=== PATIENT | male | born 1955 | race Caucasian/White ===

== ENCOUNTER 2018-02-03 07:42 | Inpatient (IN) | payer BC ==
[2018-02-03] MEDS ORDERED: FAMOTIDINE 20 MG TAB PO ONE (07:49)
[2018-02-03] MEDS ORDERED: diphenhydrAMINE 25 MG CAP PO ONE ×2 (07:49→08:44)
[2018-02-03] MEDS ORDERED: NS 1,000 ML IV ONE (07:49)
[2018-02-03] MEDS ORDERED: ASPIRIN EC 325 MG TAB PO ONE ×2 (07:49→08:45)
[2018-02-03] MEDS ORDERED: DIAZEPAM 5 MG TAB PO ONE (07:49)
--- NOTE | 2018-02-03 08:16 | CPEKG ---
Heart Rate: 60 RR Interval: 1000 P-R Interval: 128 QRSD Interval: 98 QT Interval: 404 QTC Interval: 404 P Dillon: 64 QRS Dillon: 65 T Wave Dillon: 42 EKG Severity - NORMAL ECG - EKG Impression: SINUS RHYTHM EKG Impression: Agree with above Electronically Signed By: Papito Terrell 03-Feb-2018 10:45:02
[2018-02-03] MEDS ORDERED: FAMOTIDINE 20 MG TAB ONE (08:44)
[2018-02-03] MEDS ORDERED: DIAZEPAM 5 MG TAB ONE (08:45)
[2018-02-03 08:51] LABS: PLATELET COUNT 172 10^3/uL (150-400)
[2018-02-03 09:00] LABS: INR 1.01 (0.83-1.16); PROTIME(PATIENT) 13.5 SEC (12.0-15.0)
[2018-02-03] MEDS ORDERED: IOPAMIDOL (ISOVUE-370) 150 ML BTL IV ONE (09:04)
[2018-02-03] MEDS ORDERED: LIDOCAINE 1% 300 MG/30 ML SDV ONE (09:04)
[2018-02-03] MEDS ORDERED: fentaNYL 100 MCG/2 ML INJ ONE (09:04)
[2018-02-03] MEDS ORDERED: MIDAZOLAM 2 MG/2 ML VIAL ONE ×3 (09:04→10:33)
--- NOTE | 2018-02-03 09:09 | PDHPUP ---
History & Physical Update H&P update statement: This history and physical update is based on an assessment of the patient which was completed after admission or registration (within 24 hours), but prior to the surgery/procedure. H&P update: no change in patient's condition since H&P completed
--- NOTE | 2018-02-03 09:09 | PDPROPOC ---
Sedation Plan of Care Sedation Plan of Care: mental status noted ASA Classification: ASA 1 Planned drugs: fentanyl, midazolam Mallampati Score: Class 1 Mallampati Reference Image: Patient passed 3-3-2 rule?: Yes
[2018-02-03] MEDS ORDERED: PHENYLEPHRINE HCL 50 MG in NS 250 ML IV ONE (10:11)
[2018-02-03] MEDS ORDERED: SODIUM BICARBONATE 20 MEQ, LIDOCAINE 1% 10 ML in NORMOSOL-R 1,000 ML MISC ONE (10:11)
[2018-02-03] MEDS ORDERED: NOREPINEPHRINE BITARTRATE 16 MG in NS 250 ML IV ONE (10:11)
[2018-02-03] MEDS ORDERED: ceFAZolin 2 GM/SWFI 2 GM/20 ML SYR IVP ONE (10:11)
[2018-02-03] MEDS ORDERED: AMINOCAPROIC ACID 5 GM/20 ML VIAL IV ONE (10:11)
[2018-02-03] MEDS ORDERED: CITRATE DEXTROSE SOLN 500 ML BAG MISC ONE (10:11)
[2018-02-03] MEDS ORDERED: VERAPAMIL 5 MG, NITROGLYCERIN 2.5 MG, HEPARIN 500 UNIT, SODIUM BICARBONATE 0.2 MEQ in L... MISC ONE (10:11)
[2018-02-03] MEDS ORDERED: MUPIROCIN 2% 22 GM OINT NS ONE (10:11)
[2018-02-03] MEDS ORDERED: MANNITOL 25% 12.5 GM/50 ML VIAL IVP ONE (10:11)
[2018-02-03] MEDS ORDERED: INSULIN REGULAR HUMAN 100 UNIT in NS 100 ML IV ONE (10:11)
[2018-02-03] MEDS ORDERED: MILRINONE/DEXTROSE/100 ML BAG IV ONE (10:13)
[2018-02-03] MEDS ORDERED: NA BICARBONATE 50 MEQ/50 ML VIAL ONE ×2 (10:13→15:56)
[2018-02-03] MEDS ORDERED: CALCIUM CHLORIDE 1 GM/10 ML INJ ONE ×2 (10:13→10:15)
[2018-02-03] MEDS ORDERED: PROTAMINE SULFATE 50 MG/5 ML VIAL IVP ONE (10:13)
[2018-02-03] MEDS ORDERED: ceFAZolin 1 GM VIAL ONE (10:14)
[2018-02-03] MEDS ORDERED: HEPARIN 10,000 UNIT/10 ML MDV (1,000 UNIT/ML) ONE ×2 (10:14→10:15)
[2018-02-03] MEDS ORDERED: niCARdipine/NACL/200 ML BAG IV ONE (10:14)
[2018-02-03] MEDS ORDERED: DOPamine/DEXTROSE/250 ML BAG IV ONE (10:14)
[2018-02-03] MEDS ORDERED: AMIODARONE HCL 150 MG/3 ML VIAL ONE ×2 (10:14→10:16)
[2018-02-03] MEDS ORDERED: ADENOSINE 6 MG/2 ML VIAL ONE (10:14)
[2018-02-03] MEDS ORDERED: LIDOCAINE 2% 100 MG/5 ML SYR ONE (10:15)
[2018-02-03] MEDS ORDERED: ALBUMIN 5% 250 ML BOTTLE IV ONE ×2 (10:15→13:59)
[2018-02-03] MEDS ORDERED: MAGNESIUM SULFATE 1 GM/2 ML VIAL ONE (10:16)
[2018-02-03] MEDS ORDERED: methylPREDNISolone SOD SUCC 1 GM/8 ML VIAL ONE (10:16)
[2018-02-03] MEDS ORDERED: CITRATE DEXTROSE SOLN 500 ML BAG ONE (10:16)
[2018-02-03] MEDS ORDERED: VERAPAMIL 5 MG/2 ML VIAL ONE (10:30)
[2018-02-03] MEDS ORDERED: MINERAL OIL 10 ML VIAL ONE (10:30)
[2018-02-03] MEDS ORDERED: PAPAVERINE HCL 60 MG/2 ML SDV ONE (10:30)
[2018-02-03] MEDS ORDERED: PHENYLEPHRINE 10 MG/ML SDV ONE (10:32)
[2018-02-03] MEDS ORDERED: SUCCINYLCHOLINE CHLORIDE 200 MG/10 ML SYR IVP ONE (10:32)
[2018-02-03] MEDS ORDERED: ROCURONIUM 100 MG/10 ML VIAL ONE (10:32)
[2018-02-03] MEDS ORDERED: PROPOFOL 200 MG/20 ML VIAL ONE (10:33)
[2018-02-03] MEDS ORDERED: fentaNYL 250 MCG/5 ML INJ ONE ×2 (10:33)
[2018-02-03] MEDS ORDERED: LIDOCAINE 2% 5 ML SDV ONE (10:33)
--- NOTE | 2018-02-03 10:45 | CPIP ---
[f rep st] INVASIVE CARDIAC PROCEDURE DATE OF PROCEDURE: 02/03/2018 PROCEDURE PERFORMED: Cardiac catheterization. INDICATIONS: The patient has been having chest discomfort with minimal exertion. He has known coronary artery disease. His nuclear stress test was negative. He has known coronary artery disease with stenting of his right coronary artery in 2007. He is now brought to the laboratory inspector for class 2 to class 3 angina. FINDINGS: LEFT HEART CATHETERIZATION: Left ventricular end-diastolic pressure is 10 mmHg. There is no aortic stenosis. RIGHT CORONARY ARTERY: The right coronary artery has proximal to mid stent present with excellent flow through the stent. There is 0 in-stent restenosis. The patient has good distal flow and it is a dominant right coronary artery. Their is intimal mid rca disease LEFT MAIN CORONARY ARTERY: The catheter was engaged in the SAMOAN position into the left main coronary artery (that was after it was flushed in the aorta). The camera was brought to the 30 degree GUSTAFSON position and a small blush of dye was given to assess the left main coronary artery. It was obvious that there was severe disease involving the distal segment of the left main coronary artery. At that point, the catheter was removed into the abdominal aorta and we waited for interventional back up to be available for more pictures taken. We also contacted cardiac surgery. Dr. Shah came to the laboratory inspector, and at that point we reengaged the left main coronary artery and took a picture in the 30 degree GUSTAFSON projection, and saw severe obstruction in the distal left main coronary artery with good distal runoff. High grade obstruction present to ostial LAD/Diag /cx .One other picture was taken in the spider view showing disease involving the distal left main, proximal segment of the LAD, ramus and circumflex vessel. At that point, no further images were taken. Then, a pigtail was placed into the left ventricle. The patient is remaining on the table. At this point in time, the sheath is in, Cardiac Surgery has been called and asked for an urgent procedure. Blood has been sent for type and screen. The patient is getting an echocardiogram as this is being dictated and has good LV systolic function overall. No severe valvular disease seen on preliminary views of the echocardiogram. He is not having any angina. DISCUSSION: The patient is currently stable. I talked to Cardiac Surgery. They are taking him to the OR from the laboratory inspector, which I strongly recommend. I have discussed the surgery with the patient a significant length of time after anesthesia was given, and he is awake, alert and understanding, and he agrees with bypass surgery. We had talked about the need for bypass surgery in the clinic and he had agreed then, that if he needed it he wanted it done. I have also gone over the consent form with his for urgent bypass surgery, not because of spasm or complications of the procedure, but because of the findings of severe left main disease involving the proximal vessels that branch from the left main. She totally agrees and is supportive. Right now, the patient is stable. /[id number]/MODL MTDD
[2018-02-03] MEDS ORDERED: GLYCOPYRROLATE 0.2 MG/1 ML VIAL ONE ×2 (10:54)
[2018-02-03] MEDS ORDERED: LABETALOL HCL 5 MG/ML 20 ML MDV ONE (11:06)
[2018-02-03] MEDS ORDERED: NITROGLYCERIN 50 MG/10 ML SDV IV ONE (11:17)
--- NOTE | 2018-02-03 11:47 | PDANEPAE ---
ANE History of Present Illness cad needs cab ANE Past Medical History - Cardiovascular History Hx Chest Pain: Yes Hx Coronary Artery / Peripheral Vascular Disease: Yes Hx CHF / Valvular Disease: No - Pulmonary History Hx COPD: No Hx Asthma/Reactive Airway Disease: No Hx Recent Upper Respiratory Infection: No Hx Oxygen in Use at Home: No Hx Sleep Apnea: No - Endocrine History Hx Diabetes: No Hypothyroid: No Hyperthyroid: No - Renal History Hx Renal Disorders: No - Liver History Hx Hepatic Disorders: No ANE Review of Systems Review of Systems: ANE Patient History - Allergies Allergies/Adverse Reactions: No Known Allergies Allergy (Unverified 02/03/18 07:49) - Home Medications Home Medications: Aspirin EC [Aspirin EC 81 mg (*)] 81 mg PO DAILY 02/02/18 [Last Taken 02/02/18 22:00] Enalapril Maleate [Vasotec 2.5 MG (*)] 2.5 mg PO DAILY 02/02/18 [Last Taken 22:00] Metoprolol Tartrate [Lopressor 25 mg (*)] 25 mg PO BID 02/02/18 [Last Taken 06:30] Niacin ER [Niaspan 500 mg (*)] 500 mg PO DAILY 02/02/18 [Last Taken 02/02/18 22: 00] Simvastatin [Zocor] 20 mg PO DAILY 02/02/18 [Last Taken 02/02/18 22:00] - Anes Hx Anes Hx: no prior problems - Smoking Hx Smoking Status: Never smoked ANE Labs/Vital Signs - Labs Result Diagrams: 02/03/18 08:40 02/03/18 08:40 - Vital Signs Height: 188 cm Weight: 95.4 kg ANE Physical Exam - Airway Neck exam: FROM Mallampati Score: Class 2 Mouth exam: normal dental/mouth exam - Pulmonary Pulmonary: no respiratory distress - Cardiovascular Cardiovascular: regular rate and rhythym - ASA Status ASA Status: III, E ANE Anesthesia Plan Anesthesia Plan: general endotracheal anesthesia Lines/Monitors: arterial line, central line Urgent/Emergent Case: Silver masterson completed preop but documented later for safe timely pt care
--- NOTE | 2018-02-03 13:03 | ECHO ---
[email or web address] [place] [id number] Main: [phone] Fax: Transthoracic Echocardiogram Name: EVELYN COHEN MR#: [id number] Study Date: 02/03/2018 Study Time: 09:59 AM Date of : 1955 Age: 62 year(s) Height: ( ) Weight: ( ) BSA: Gender: Male Examination: Limited Echo Indication: Stat, Post cath Image Quality: Contrast: Requested by: Robert Lemos BP: / Heart Rate: Rhythm: Normal sinus rhythm Indication: Stat, Post cath Procedure Staff Online Services Manager: Lamin Clark RDCS Reading Physician: Robert Lemos MD Requesting Provider: Conclusions: There is normal LV function with a EF estimated at 60-65% There is trivial to mild MR. There is no evidence of Aortic Stenosis or Aortic Regurgitation. There is minimal TR with no evidence of pulmonary hypertension.. Measurements: Chambers Valvular Assessment AV/MV Valvular Assessment TV/PV Normal Normal Normal Name Value Range Name Value Range Name Value Range IVSd (2D): 0.9 cm (0.6 cm-1.1 AV Vmax: 1.14 m/s (1 m/s-1.7 cm) m/s) LVDd (2D): 3.0 cm (4.2 cm-5.9 AV maxP mmHg ( - ) cm) AV meanP mmHg ( - ) LVDs (2D): 2.2 cm (2.1 cm-4 MV meanP mmHg ( - ) cm) LVPWd (2D): 1.0 cm (0.6 cm-1 cm) LVEF (2D): 52 (>=54 %) Continued Measurements: Valvular Assessment AV/MV Name Value MV VTI: 18.50 cm Findings: Exam Comments: There is normal LV function with a EF estimated at 60-65% There is trivial to mild MR. There is no evidence of Aortic Stenosis or Aortic Regurgitation. There is minimal TR with no evidence of Patient: EVELYN COHEN Study Date: 02/03/2018 Page 1 of 2 09:59 AM pulmonary hypertension.. (No Signature Object) Patient: EVELYN COHEN Study Date: 02/03/2018 Page 2 of 2 09:59 AM [id number]
[2018-02-03] MEDS ORDERED: MAGNESIUM SULF 2 GM/WATER 50 ML BAG IV ONE (13:59)
[2018-02-03] MEDS ORDERED: DEXMEDETOMIDINE HCL 400 MCG in NS 100 ML IV ONE (14:00)
[2018-02-03] MEDS ORDERED: DEXMEDETOMIDINE IN 0.9 % NACL 100 ML IV ONE (14:00)
[2018-02-03] MEDS ORDERED: SUGAMMADEX SODIUM 200 MG/2 ML VIAL IVP ONE (14:03)
[2018-02-03] MEDS ORDERED: epHEDrine SULFATE 10 MG/ML SYR ONE (14:07)
[2018-02-03] MEDS ORDERED: BISACODYL 10 MG SUPP PR PRN (14:20)
[2018-02-03] MEDS ORDERED: POTASSIUM Cl (KCl) 50 ML IV PRN (14:20)
[2018-02-03] MEDS ORDERED: PANTOPRAZOLE SODIUM 40 MG VIAL IVP ONE (14:20)
[2018-02-03] MEDS ORDERED: ACETAMINOPHEN 650 MG SUPP PR PRN (14:20)
[2018-02-03] MEDS ORDERED: ALBUMIN 5% 250 ML IV PRN (14:20)
[2018-02-03] MEDS ORDERED: MAGNESIUM SULF 2 GM/WATER 50 ML IV ONE (14:20)
[2018-02-03] MEDS ORDERED: METOCLOPRAMIDE 10 MG/2 ML VIAL IVP PRN (14:20)
[2018-02-03] MEDS ORDERED: POLYETHYLENE GLYCOL 3350 17 GM PKT PO PRN (14:20)
[2018-02-03] MEDS ORDERED: MAGNESIUM HYDROXIDE 30 ML UDCUP PO PRN (14:20)
[2018-02-03] MEDS ORDERED: CEPACOL LOZENGE PO PRN (14:20)
[2018-02-03] MEDS ORDERED: LACTULOSE 20 GM/30 ML UDCUP PO PRN (14:20)
[2018-02-03] MEDS ORDERED: D50W 25 GM/50 ML SYR IVP PRN (14:20)
[2018-02-03] MEDS ORDERED: MEPERIDINE 25 MG/ML SYR IVP PRN (14:20)
[2018-02-03] MEDS ORDERED: ONDANSETRON DISINTEGRATING 4 MG TAB PO PRN (14:20)
[2018-02-03] MEDS ORDERED: SODIUM CL NASAL 45 ML BTL EACHNARE PRN (14:20)
[2018-02-03] MEDS ORDERED: NS 1,000 ML IV SCH (14:30)
[2018-02-03] MEDS ORDERED: INSULIN REGULAR HUMAN 100 UNIT in NS 100 ML IV SCH (14:30)
--- NOTE | 2018-02-03 14:42 | POSTANESTH ---
Post Anesthetic Evaluation Cardiovascular Status: Normal, Stable Respiratory Status: Normal, Stable Level of Consciousness/Mental Status: Can Participate in Eval Pain Control: Adequate, Prn Tx Ordered Nausea/Vomiting Control: Adequate, Prn Tx Ordered Complications Possibly Related to Anesthesia: None Noted
[2018-02-03] MEDS: fentaNYL 100 MCG/2 ML INJ IVP PRN ×3 (14:45→20:18)
--- NOTE | 2018-02-03 15:06 | GOP ---
[f rep st] OPERATIVE REPORT DATE OF OPERATION: SURGEON: Elie Donald DO HATCH SUPERVISOR: YANE Grimes ANESTHESIOLOGIST: Nicolas Quintero MD PREOPERATIVE DIAGNOSIS: Acute ischemic event with severe left main stenosis at catheterization. POSTOPERATIVE DIAGNOSIS: Acute ischemic event with severe left main stenosis at catheterization. PROCEDURE PERFORMED: 1. Emergent coronary artery bypass grafting x4 with left internal mammary artery to the left anterio r descending artery, right internal mammary artery to the ramus via the transverse sinus, saphenous v ein graft to the 1st obtuse marginal, saphenous vein graft to the posterior descending artery. 2. A 35 mm AtriClip to the left atrial appendage. 3. Endoscopic vein harvest, left leg, performed by Cyndi Strange PA-C. FINDINGS: Patient was noted to have chest pain on catheterization table with subtotal left main sten osis. Previous stenting of the right was patent with a proximal PDA lesion. LV function was well pr eserved on echo. DESCRIPTION OF PROCEDURE: He was brought emergently to the operating room, intubated. Monitoring li trent were placed. He was prepped and draped in sterile classical manner. Sternotomy was performed. Both mammaries were harvested. They were excellent vessels with good flow. He was heparinized, christine ulated. Bypass was begun. A cardioplegic arrest was obtained with antegrade cardioplegia, topical h ypothermia, and systemic cooling. Initially, the left atrial appendage was occluded with a 35 mm AtriClip. We then proceeded with navin ting a small lateral circumflex vessel, which measured 1.5 mm, but had excellent flow when completed. The proximal anastomosis was then completed with a cross-clamp on. We then grafted the ramus branc h, which was a 2.5 mm vessel with excellent quality, right internal mammary artery brought through a lateral pericardial incision via the transverse sinus and grafted end-to-side. It was tacked to the epicardium. Rewarming was begun while the proximal PDA, which was a 2.8 mm vessel with calcification in it, was grafted with a proximal anastomosis completed on the ascending aorta as well. We then gr afted the mammary to the LAD, which was a 2.4 mm vessel. The mammary was 2.4 mm. It was tacked to t he epicardium. Cross-clamp was removed with suction on the ascending aortic vent. Spontaneous cardiac activity was noted to resume. The patient was easily weaned from bypass. The heparin was reversed with protamine . The cannula was removed and oversewn. Two ventricular pacing wires, 2 pleural and 1 mediastinal d rains were placed. The thymic fat and pericardium were closed. Chest was closed in standard fashion . Patient was extubated in the operating room, returned to ICU in stable condition. /[id number]/MODL
--- NOTE | 2018-02-03 15:33 | CPEKG ---
Heart Rate: 69 RR Interval: 870 P-R Interval: 168 QRSD Interval: 94 QT Interval: 404 QTC Interval: 433 P Spring: 44 QRS Spring: 25 T Wave Spring: 63 EKG Severity - NORMAL ECG - EKG Impression: SINUS RHYTHM EKG Impression: EARLY TRANSITION EKG Impression: SLIGHT, DIFFUSE ST-T WAVE ABNORMALITIES -- NEW SINCE FEBRUARY 03, 2018, 8:14 Electronically Signed By: Papito Terrell 03-Feb-2018 20:22:33
--- NOTE | 2018-02-03 15:48 | PDMN ---
Medical Necessity Medical necessity: Patient meets inpatient criteria per PA and [facility] S-390 CABG ( acute ischemic event w/severe L main stenosis on cardiac cath, CABG x 4.)
[2018-02-03] MEDS ORDERED: NA BICARBONATE 50 MEQ/50 ML VIAL IV ONE (16:15)
[2018-02-03] MEDS: ceFAZolin 2 GM/SWFI 2 GM/20 ML SYR IVP SCH (21:46)
[2018-02-03] MEDS ORDERED: ceFAZolin 2 GM/DEXTROSE 100 ML IV SCH (22:00)
[2018-02-03] MEDS: MUPIROCIN 2% 22 GM OINT NS SCH (22:59)
[2018-02-04] MEDS: ONDANSETRON 4 MG/2 ML VIAL IVP PRN ×4 (00:52→20:10)
[2018-02-04] MEDS: fentaNYL 100 MCG/2 ML INJ IVP PRN (05:11)
[2018-02-04 05:56] LABS: PLATELET COUNT 121 10^3/uL (150-400)
[2018-02-04] MEDS: HEPARIN 5,000 UNIT/0.5 ML SYR SC SCH ×3 (06:16→21:41)
[2018-02-04] MEDS: ceFAZolin 2 GM/SWFI 2 GM/20 ML SYR IVP SCH ×3 (06:16→21:41)
[2018-02-04] MEDS: HYDROCODONE/APAP 5/325 TAB PO PRN ×2 (06:29→07:25)
--- NOTE | 2018-02-04 07:04 | SOAPPROG ---
SOAP Progress Note Assessment/Plan: Assessment: POD#1 Emergent CABG x 4 (WILFREDO-LAD, HOWARD-RI, SV-OM1, SV-PDA), EVH LLE , prophylactic AtriClip ligation SANDRA UA/progressive CAD with preserved systolic fx - Patent RCA stent, new PDA lesion and severe LM stenosis. Emergent CABG for threatening anatomy. No apparent complications. Extubated in the OR. Stable hemodynamics without vasoactive support or pacing. No sig volume overload. Secondary prevention with baby ASA, BB uptitrated as tolerated, and statin when eating well. Acute expected blood loss anemia - Stable. No transfusions required. VTE prophylaxis with SQ hep. Plan: Routine POD#1 orders re. wires, lines, drains, orals and mobility. Start metoprolol 12.5 mg BID with conservative hold parameters. Tx to PCU. 02/04/18 07:00 Subjective: Feels ok. Comfortable at rest. No dizziness or nausea. Objective: Vital Signs Temp Pulse Resp BP Pulse Ox 37.3 C 92 26 H 118/79 92 02/04/18 05:00 02/04/18 06:00 02/04/18 06:00 02/04/18 06:00 02/04/18 06:00 Laboratory Results 02/04/18 05:45 02/04/18 05:45 02/03/18 02/04/18 02/05/18 05:59 05:59 05:59 Intake Total 1245 Output Total 1819 Balance -574 PT 13.5 SEC (12.0-15.0) 02/03/18 08:40 INR 1.01 (0.83-1.16) 02/03/18 08:40 Stable HR, rhythm and BP. Min suppl O2. Adequate fluid balance. No sig CTOP. CXR -> No PTX, min pulm vasc congestion, LLL atelectasis, abundant bowel gas. Labs as expected. Physical Exam - Physical Exam General Appearance: alert, no apparent distress Respiratory: lungs clear (grossly), other (blakes x 3 y-d to pleurovac, thin serosang drainage, no air leak) Cardiac/Chest: regular rate, rhythm, other (Sternotomy and LLE venotomy CDI. Vwires intact.) Abdomen: normal bowel sounds, non-tender, soft Skin: warm/dry Extremities: swelling (trace) ICD10 Worksheet Patient Problems: Problems Problem Status Onset Acute blood loss anemia Acute CAD, multiple vessel Acute S/P CABG x 4 Acute ~02/03/18
[2018-02-04] MEDS ORDERED: traMADol 50 MG TAB PO PRN (08:05)
--- NOTE | 2018-02-04 09:41 | ASMTCASEMG ---
Living Arrangements What is your living Answers: With Spouse arrangement? Who do you live with? Type Of Residence What kind of residence do Answers: House you live in? Discharge Plan Comments Coordination Status Comments Notes: Patient is a 62 yo male who was admitted for a cardiac catheterization procedure. OT/PT/cardiac rehab have been ordered. Patient lives in [place]. D/C plan TBD. CM will follow. Date Signed: 02/04/2018 09:41 AM Electronically Signed By:Maryjane Rodriguez LCSW
[2018-02-04] MEDS: ATORVASTATIN CALCIUM 10 MG TAB PO SCH (09:57)
[2018-02-04] MEDS: METOPROLOL TARTRATE 25 MG TAB PO SCH ×2 (09:58→21:41)
[2018-02-04] MEDS: ASPIRIN EC 81 MG TAB PO SCH (09:59)
[2018-02-04] MEDS: PANTOPRAZOLE SODIUM 40 MG TAB PO SCH (09:59)
[2018-02-04] MEDS: MUPIROCIN 2% 22 GM OINT NS SCH ×2 (10:08→21:45)
[2018-02-04] MEDS: OXYCODONE/APAP 5/325 TAB PO PRN ×3 (13:01→20:10)
[2018-02-04] MEDS ORDERED: FUROSEMIDE 20 MG/2 ML VIAL IVP ONE (17:57)
[2018-02-05] MEDS: HEPARIN 5,000 UNIT/0.5 ML SYR SC SCH ×3 (05:46→21:47)
[2018-02-05] MEDS: ceFAZolin 2 GM/SWFI 2 GM/20 ML SYR IVP SCH (05:47)
[2018-02-05] MEDS: HYDROCODONE/APAP 5/325 TAB PO PRN ×3 (05:50→20:03)
--- NOTE | 2018-02-05 06:58 | SOAPPROG ---
SOAP Progress Note Assessment/Plan: POD#2 Emergent CABG x 4 (WILFREDO-LAD, HOWARD-RI, SV-OM1, SV-PDA), EVH LLE, prophylactic AtriClip ligation SANDRA UA/progressive CAD with preserved systolic fx - Patent RCA stent, new PDA lesion and severe LM stenosis. Emergent CABG for threatening anatomy. No apparent complications. Extubated in the OR. Stable hemodynamics without vasoactive support or pacing. No sig volume overload. Secondary prevention with baby ASA, BB uptitrated as tolerated, and statin when eating well. Post-op ST elevations with chest tightness - Dr. Mitchell to perform LHC this morning. Acute expected blood loss anemia - Stable. No transfusions required. VTE prophylaxis with SQ hep. Subjective: Has some chest tightness but attributes to having just walked. Difficult to take deep breaths without pain. Objective: Vital Signs Temp Pulse Resp BP Pulse Ox 35.7 C L 107 H 20 87/66 L 99 02/05/18 06:17 02/05/18 06:17 02/05/18 06:17 02/05/18 06:17 02/05/18 06:17 Laboratory Results 02/04/18 05:45 02/05/18 03:35 02/04/18 02/05/18 02/06/18 05:59 05:59 05:59 Intake Total 1245 1110 100 Output Total 1819 1285 225 Balance -574 -175 -125 PT 13.5 SEC (12.0-15.0) 02/03/18 08:40 INR 1.01 (0.83-1.16) 02/03/18 08:40 Physical Exam - Physical Exam General Appearance: WD/WN, alert, no apparent distress EENT: No scleral icterus (R), No scleral icterus (L) Neck: normal inspection Respiratory: No respiratory distress Cardiac/Chest: tachycardia Abdomen: non-tender, soft, No distended Skin: normal color, warm/dry Extremities: No pedal edema Neuro/Psych: no motor/sensory deficits, alert, normal mood/affect, oriented x 3 ICD10 Worksheet Patient Problems: Problems Problem Status Onset Acute blood loss anemia Acute CAD, multiple vessel Acute S/P CABG x 4 Acute ~02/03/18
--- NOTE | 2018-02-05 07:36 | CPEKG ---
Heart Rate: 91 RR Interval: 659 P-R Interval: 124 QRSD Interval: 82 QT Interval: 348 QTC Interval: 429 P Blue Eye: 36 QRS Blue Eye: 18 T Wave Blue Eye: -8 EKG Severity - ABNORMAL ECG - EKG Impression: SINUS RHYTHM EKG Impression: ANTEROLATERAL INJURY, EARLY ACUTE INFARCT -- New since February 03, 2018 Electronically Signed By: Papito Terrell 05-Feb-2018 11:02:53
[2018-02-05] MEDS ORDERED: fentaNYL 100 MCG/2 ML INJ ONE ×2 (08:34→09:52)
[2018-02-05] MEDS ORDERED: LIDOCAINE 1% 300 MG/30 ML SDV ONE (08:34)
[2018-02-05] MEDS ORDERED: MIDAZOLAM 2 MG/2 ML VIAL ONE ×3 (08:35→10:35)
[2018-02-05] MEDS ORDERED: IOPAMIDOL (ISOVUE-370) 150 ML BTL IV ONE ×2 (08:35→09:51)
[2018-02-05] MEDS ORDERED: EPINEPHrine 1 MG/10 ML SYR IVP ONE (08:36)
[2018-02-05] MEDS ORDERED: ATROPINE SULFATE 1 MG/10 ML SYR ONE (08:36)
[2018-02-05] MEDS ORDERED: NITROGLYCERIN 1,500 MCG/15 ML VIAL MISC ONE (08:37)
[2018-02-05] MEDS ORDERED: BIVALIRUDIN 250 MG/5 ML VIAL IV ONE (08:37)
--- NOTE | 2018-02-05 09:05 | PDPROPOC ---
Sedation Plan of Care Sedation Plan of Care: vital signs stable, mental status noted, patient educated of risks, benefits, alternatives, patient can tolerate sedation ASA Classification: ASA 2 Planned drugs: fentanyl, midazolam Mallampati Score: Class 2 Mallampati Reference Image: Patient passed 3-3-2 rule?: Yes
--- NOTE | 2018-02-05 10:11 | ASMTCMCOM ---
CM Note CM Note Notes: Therapies are recommending pt can go home independently. No other identified needs at this time. CM available for changes. Plan: Independent Date Signed: 02/05/2018 10:11 AM Electronically Signed By:JOEY Mera
--- NOTE | 2018-02-05 11:55 | CPIP ---
[f rep st] INVASIVE CARDIAC PROCEDURE DATE OF PROCEDURE: 02/05/2018 PROCEDURE: 1. Coronary angiography. 2. Bypass graft angiography. 3. Left ventricular end-diastolic pressure. 4. Bedside echocardiogram to evaluate LVEF. INDICATIONS: 1. Known coronary artery disease status post recent bypass grafting surgery. 2. Chest pain. 3. Abnormal EKG with ST-segment elevation in leads 1, aVL and V1 through V5 with reciprocal changes in the inferior leads. ACCESS: The patient was prepped and draped in sterile fashion. 1% lidocaine was used to anesthetize the right inguinal region. A 6-Lithuanian introducer sheath was placed selectively into the right commo n femoral artery via modified Seldinger technique. CORONARY ANGIOGRAPHY: A 6-Lithuanian JL4 was advanced to the left main coronary artery and images obtain ed. The left main coronary artery trifurcated into an LAD, ramus, and circumflex coronary arteries. The left main had a distal 90% stenosis present. The left anterior descending coronary artery had c ompetitive flow via a patent RODRIGUES to LAD graft. The circumflex coronary artery was 100% occluded. T he ramus coronary artery had competitive flow via patent DANNIELLE to the ramus graft. A 6-Lithuanian JR4 was advanced to the right coronary artery and images obtained. The right coronary artery was previously stented in the proximal to middle segments. The previously placed stents were widely patent with mi ld in-stent restenosis. The posterior descending coronary artery had an ostial 40% to 50% stenosis p resent. BYPASS GRAFT ANGIOGRAPHY: A 6-Lithuanian JR4 was used to engage the saphenous vein graft to right neal ry artery. The saphenous vein graft to the right coronary artery was patent with evidence of slow fl ow. This is likely secondary to competitive flow via the [place] right coronary artery. A 6-Lithuanian L CB catheter was used to engage the saphenous vein graft to OM coronary artery. The saphenous vein gr aft to OM coronary artery was widely patent. The 6-Lithuanian JR4 was used to engage the RODRIGUES to LAD gra ft. The RODRIGUES to LAD graft was widely patent. The 6-Lithuanian JR4 was used to engage the right subclavi an artery. The 6-Lithuanian JR4 was then exchanged for a 6-Lithuanian CARA catheter. The 6-Lithuanian CARA cathet er was used to engage the DANNIELLE to ramus graft. The DANNIELLE to the ramus graft was widely patent with ev idence of MAGDALENA-3 flow. At the distal anastomosis an intermediate grade stenosis can be appreciated. The degree of narrowing was approximately 50% to 70% in severity. Left ventricular end-diastolic pr essure. A 6-Lithuanian JR4 was advanced into the left ventricle and left ventricular end-diastolic press ure obtained. Left ventricular end-diastolic pressure was 15 mmHg. ECHOCARDIOGRAM: Bedside echocardiogram was performed. Bedside echocardiogram demonstrated normal le ft ventricular size and systolic function. Please see formal report for details. COMPLICATIONS: None. CONCLUSIONS: 1. Significant left main disease with patent grafts to the LAD and OM coronary arteries. 2. Intermediate grade anastomotic lesion in the DANNIELLE to ramus graft with evidence of MAGDALENA-3 flow and no segmental wall motion abnormalities. 3. Patent right coronary artery stent with mild in-stent restenosis. There was slow flow in the sap henous vein graft to right coronary artery. This is likely secondary to competitive flow. 4. Plan is for medical management. 5. Consider percutaneous coronary intervention of the DANNIELLE to ramus graft for anginal type symptoms. /[id number]/MODL
[2018-02-05] MEDS: SENNOSIDES/DOCUSATE SODIUM TAB PO SCH ×2 (12:43→21:47)
[2018-02-05] MEDS: PANTOPRAZOLE SODIUM 40 MG TAB PO SCH (12:43)
[2018-02-05] MEDS: ASPIRIN EC 81 MG TAB PO SCH (12:43)
[2018-02-05] MEDS: ATORVASTATIN CALCIUM 10 MG TAB PO SCH (12:43)
[2018-02-05] MEDS: METOPROLOL TARTRATE 25 MG TAB PO SCH ×2 (12:44→21:47)
[2018-02-05] MEDS: MUPIROCIN 2% 22 GM OINT NS SCH ×2 (12:47→21:50)
--- NOTE | 2018-02-05 15:14 | ECHO ---
[email or web address] [place] [id number] Main: [phone] Fax: Transthoracic Echocardiogram Name: EVELYN COHEN MR#: [id number] Study Date: 02/05/2018 Study Time: 10:44 AM Date of : 1955 Age: 62 year(s) Height: ( ) Weight: ( ) BSA: Gender: Male Examination: Echo Indication: Post CABG, Cath Image Quality: Contrast: Requested by: Robert Lemos BP: / Heart Rate: Rhythm: Indication: Post CABG, Cath Procedure Staff Contact Assembler: Lamin Clark RDCS Reading Physician: Robret Lemos MD Requesting Provider: Conclusions: This is a limited echo to evaluate LV function during a cardiac catherization. The EF is normal without any obvious LV wall motion.. Measurements: Chambers Valvular Assessment AV/MV Valvular Assessment TV/PV Normal Normal Normal Name Value Range Name Value Range Name Value Range Continued Measurements: Findings: Exam Comments: This is a limited echo to evaluate LV function during a cardiac catherization. The EF is normal without any obvious LV wall motion.. (No Signature Object) Patient: EVELYN COHEN Study Date: 02/05/2018 Page 1 of 1 10:44 AM [id number]
[2018-02-06] MEDS: HEPARIN 5,000 UNIT/0.5 ML SYR SC SCH ×3 (06:22→21:37)
--- NOTE | 2018-02-06 07:22 | SOAPPROG ---
SOAP Progress Note Assessment/Plan: POD #3: Emergent CABG x 4 (WILFREDO-LAD, HOWARD-RI, SV-OM1, SV-PDA), EVH LLE, prophylactic AtriClip ligation SANDRA POD #1: Coronary and bypass angiography UA/progressive CAD with preserved systolic fx - Patent RCA stent, new PDA lesion and severe LM stenosis. Emergent CABG for threatening anatomy. No apparent complications. Extubated in the OR. Stable hemodynamics without vasoactive support or pacing. No sig volume overload. Secondary prevention with baby ASA, BB uptitrated as tolerated, and statin when eating well. 1 chest tube at removal criteria. Pacing wires to be removed. Post-op ST elevations - LHC performed which showed patent grafts to LAD and OM. There was an intermediate grade anastomotic lesion in the DANNIELLE-ramus graft which good flow and slow flow in the SVG-RCA graft likely d/t competitive flow. No interventions were performed. An TTE showed normal LVEF. ST elevations on tele monitor today show a decrease in ST elevations and pt remains comfortable without CP/SOB. Continue to monitor. Acute expected blood loss anemia - Stable. No transfusions required. VTE prophylaxis with SQ hep. Post-operative paroxysmal atrial fibrillation - Amiodarone started, increase BB as tolerated. Start Eliquis Friday if rhythm persists. DVT prophylaxis - SCDs/heparin SQ. Disposition - home Friday/Friday without services. Subjective: Denies chest pain/tightness/SOB. Objective: Vital Signs Temp Pulse Resp BP Pulse Ox 36.7 C 109 H 17 132/83 H 92 02/06/18 04:00 02/06/18 04:00 02/06/18 04:00 02/06/18 04:00 02/06/18 04:00 Laboratory Results 02/06/18 04:00 02/06/18 04:00 02/05/18 02/06/18 02/07/18 05:59 05:59 05:59 Intake Total 1110 1600 Output Total 1285 1485 Balance -175 115 PT 13.5 SEC (12.0-15.0) 02/03/18 08:40 INR 1.01 (0.83-1.16) 02/03/18 08:40 Physical Exam - Physical Exam General Appearance: WD/WN, alert, no apparent distress EENT: No scleral icterus (R), No scleral icterus (L) Neck: normal inspection Respiratory: No respiratory distress Cardiac/Chest: irregularly irregular Abdomen: non-tender, soft, No distended Skin: normal color, warm/dry Extremities: No pedal edema Neuro/Psych: no motor/sensory deficits, alert, normal mood/affect, oriented x 3 ICD10 Worksheet Patient Problems: Problems Problem Status Onset Acute blood loss anemia Acute CAD, multiple vessel Acute S/P CABG x 4 Acute ~02/03/18
[2018-02-06] MEDS ORDERED: AMIODARONE HCL 200 ML IV ONE (09:03)
[2018-02-06] MEDS ORDERED: AMIODARONE HCL 100 ML IV ONE (09:03)
[2018-02-06] MEDS: NIACIN ER 500 MG TAB.ER PO SCH (09:21)
[2018-02-06] MEDS: ASPIRIN EC 81 MG TAB PO SCH (09:21)
[2018-02-06] MEDS: ACETAMINOPHEN 325 MG TAB PO PRN (09:21)
[2018-02-06] MEDS: ATORVASTATIN CALCIUM 10 MG TAB PO SCH (09:22)
[2018-02-06] MEDS: PANTOPRAZOLE SODIUM 40 MG TAB PO SCH ×2 (09:22→11:14)
[2018-02-06] MEDS ORDERED: METOPROLOL TARTRATE 5 MG/5 ML INJ IVP ONE (09:24)
[2018-02-06] MEDS ORDERED: METOPROLOL TARTRATE 5 MG/5 ML INJ ONE (09:26)
[2018-02-06] MEDS: METOPROLOL TARTRATE 50 MG TAB PO SCH ×2 (09:57→21:37)
[2018-02-06] MEDS: SENNOSIDES/DOCUSATE SODIUM TAB PO SCH ×2 (10:03→22:52)
[2018-02-06] MEDS: METOPROLOL TARTRATE 25 MG TAB PO SCH (10:04)
--- NOTE | 2018-02-06 15:16 | ASMTCMCOM ---
CM Note CM Note Notes: Pt met w/ pt and regarding questions they had regarding cost of cardiac rehab. CM suggested that they call the phone number on the back of their insurance card. In addition, CM suggested pt calls [facility] directly with their questions. No other identified needs at this time. CM available for changes. Plan: Independent Date Signed: 02/06/2018 03:15 PM Electronically Signed By:JOEY Mera
[2018-02-06] MEDS ORDERED: AMIODARONE HCL 540 MG in D5W 300 ML IV ONE (15:44)
[2018-02-06] MEDS: HYDROCODONE/APAP 5/325 TAB PO PRN (21:35)
[2018-02-07] MEDS: ACETAMINOPHEN 325 MG TAB PO PRN (06:22)
[2018-02-07] MEDS: HEPARIN 5,000 UNIT/0.5 ML SYR SC SCH (06:22)
--- NOTE | 2018-02-07 08:06 | SOAPPROG ---
SOAP Progress Note Assessment/Plan: Assessment: POD#1 Emergent CABG x 4 (WILFREDO-LAD, HOWARD-RI, SV-OM1, SV-PDA), EVH LLE , prophylactic AtriClip ligation SANDRA POD#2 [facility] with coronary and bypass angiography UA/progressive CAD with preserved systolic fx - Patent RCA stent, new PDA lesion and severe LM stenosis. Emergent CABG for threatening anatomy. No apparent complications. Extubated in the OR. Stable hemodynamics without vasoactive support or pacing. No sig volume overload. Mediastinal tube and TCPWs out. Secondary prevention with baby ASA, statin, and BB uptitrated as tolerated. Postop anterolateral ST elevations - Without hemodynamic instability. Limited echo neg for RWMA or LVSD. All grafts patent by angiography. Slow flow in the PDA graft attributed to competitive flow. Intermediate grade anastomotic stenosis of the DANNIELLE-RI not felt to warrant intervention. BB uptitrated as tolerated. EKG changes appear to have normalized. Post-operative paroxysmal atrial fibrillation - Intermittent on amio and escalating BB. [id number] score of 2. Antithrombotic prophylaxis with Eliquis. Acute expected blood loss anemia - Stable. No transfusions required. VTE prophylaxis with DOAC. Plan: Remove right pleural tube. Cont Metoprolol 50 mg BID. Transition IV amio to orals. Start Eliquis 5 mg BID. Relax bowel regimen. Cont inc activity as tolerated. Disposition - Anticipate home without services next 1-2 days. 02/07/18 07:56 Subjective: Diarrhea, attributed to Protonix. Satisfactory analgesia. Aware of AF early this am. Hopeful for home tomorrow. Objective: Vital Signs Temp Pulse Resp BP Pulse Ox 36.6 C 68 15 120/71 95 02/07/18 07:52 02/07/18 07:52 02/07/18 07:52 02/07/18 07:52 02/07/18 07:52 Laboratory Results 02/06/18 04:00 02/06/18 04:00 02/06/18 02/07/18 02/08/18 05:59 05:59 05:59 Intake Total 1600 1721.4 Output Total 1485 625 Balance 115 1096.4 PT 13.5 SEC (12.0-15.0) 02/03/18 08:40 INR 1.01 (0.83-1.16) 02/03/18 08:40 PAF for several min ~4:30 am. No RVR. STs on tele isoelectric. Tolerating inc BB. Excellent sats on 4 lpm. Likely could wean to 2-3 lpm. Rt pleural drain at removal criteria. Left getting close. Adequate fluid balance. 1.6 kg below admit wt without lasix. - Pending Discharge Pending Discharge Within 48 Hours: Yes Pending Discharge Date: 02/09/18 Pending Discharge Time: 11:00 Physical Exam - Physical Exam General Appearance: alert, no apparent distress Respiratory: lungs clear (grossly), other (blakes x 2 to bulb suction, thin serosang drainage) Cardiac/Chest: regular rate, rhythm, other (Sternotomy and LLE venotomy CDI) Abdomen: non-tender, soft Skin: warm/dry Extremities: other (no visible edema) ICD10 Worksheet Patient Problems: Problems Problem Status Onset Acute blood loss anemia Acute CAD, multiple vessel Acute S/P CABG x 4 Acute ~02/03/18
[2018-02-07] MEDS ORDERED: SENNOSIDES/DOCUSATE SODIUM TAB PO PRN (09:00)
[2018-02-07] MEDS: ASPIRIN EC 81 MG TAB PO SCH (09:10)
[2018-02-07] MEDS: ATORVASTATIN CALCIUM 10 MG TAB PO SCH (09:10)
[2018-02-07] MEDS: APIXABAN 5 MG TAB PO SCH ×2 (09:10→19:55)
[2018-02-07] MEDS: METOPROLOL TARTRATE 50 MG TAB PO SCH ×2 (09:10→19:54)
[2018-02-07] MEDS: AMIODARONE HCL 200 MG TAB PO SCH ×2 (09:11→19:55)
[2018-02-07] MEDS: NIACIN ER 500 MG TAB.ER PO SCH (09:11)
[2018-02-07] MEDS: PANTOPRAZOLE SODIUM 40 MG TAB PO SCH (09:35)
[2018-02-07] MEDS: HYDROCODONE/APAP 5/325 TAB PO PRN (22:43)
--- NOTE | 2018-02-08 07:57 | SOAPPROG ---
SOAP Progress Note Assessment/Plan: Assessment: POD#5 Emergent CABG x 4 (WILFREDO-LAD, HOWARD-RI, SV-OM1, SV-PDA), EVH LLE , prophylactic AtriClip ligation SANDRA POD#3 [facility] with coronary and bypass angiography UA/progressive CAD with preserved systolic fx - Patent RCA stent, new PDA lesion and severe LM stenosis. Emergent CABG for threatening anatomy. No apparent complications. Extubated in the OR. Stable hemodynamics without vasoactive support or pacing. Adequate auto-diuresis of modest volume overload. TCPWs and 2 of 3 chest tubes out. Secondary prevention with baby ASA, statin, and BB uptitrated as tolerated. Postop anterolateral ST elevations - Without hemodynamic instability. Limited echo neg for RWMA or LVSD. All grafts patent by angiography. Slow flow in the PDA graft attributed to competitive flow. Intermediate grade anastomotic stenosis (kink) of the DANNIELLE-RI not felt to warrant intervention. BB uptitrated as tolerated. EKG changes appear to have normalized. Post-operative paroxysmal atrial fibrillation - Intermittent on amio and escalating BB. Sinus rhythm held overoc. Antithrombotic prophylaxis with Eliquis for [id number] score of 2. Acute expected blood loss anemia - Stable. No transfusions required. VTE prophylaxis with DOAC. Plan: Remaining chest tube removed. Cont Metoprolol 50 mg BID. Cont amio 200 mg BID. Cont Eliquis 5 mg BID. Disposition - Home without services later today vs tomorrow. 02/08/18 07:54 Subjective: Much more comfortable after rt pleural tube out yest. Shower and inc activity well tolerated. Slept soundly. No further loose stools. Hopeful for home later today. Objective: Vital Signs Temp Pulse Resp BP Pulse Ox 36.6 C 69 18 132/79 H 95 02/08/18 04:00 02/08/18 04:00 02/08/18 04:00 02/08/18 04:00 02/08/18 04:00 Laboratory Results 02/06/18 04:00 02/06/18 04:00 02/07/18 02/08/18 02/09/18 05:59 05:59 05:59 Intake Total 1721.4 1140 Output Total 625 1800 Balance 1096.4 -660 PT 13.5 SEC (12.0-15.0) 02/03/18 08:40 INR 1.01 (0.83-1.16) 02/03/18 08:40 Holding SR. Suppl O2 req down to 2 lpm yest. RA trial in progress. Adequate fluid balance. Remains 1 kg below admit wt. CTOP 50 cc last shift. - Pending Discharge Pending Discharge Within 24 Hours: Yes Pending Discharge Date: 02/09/18 Pending Discharge Time: 11:00 Physical Exam - Physical Exam General Appearance: alert, no apparent distress Respiratory: lungs clear (grossly), other (Left pleural vashti to bulb suction, thin mostly serous drainage. Tube removed without incident.) Cardiac/Chest: regular rate, rhythm, other (Sternum grossly stable. Sternotomy and LLE venotomy CDI) Abdomen: non-tender, soft Skin: warm/dry Extremities: swelling (trace dependent donor leg) ICD10 Worksheet Patient Problems: Problems Problem Status Onset Acute blood loss anemia Acute CAD, multiple vessel Acute S/P CABG x 4 Acute ~02/03/18
[2018-02-08] MEDS: NIACIN ER 500 MG TAB.ER PO SCH (09:03)
[2018-02-08] MEDS: ATORVASTATIN CALCIUM 10 MG TAB PO SCH (09:03)
[2018-02-08] MEDS: AMIODARONE HCL 200 MG TAB PO SCH (09:03)
[2018-02-08] MEDS: METOPROLOL TARTRATE 50 MG TAB PO SCH (09:03)
[2018-02-08] MEDS: ASPIRIN EC 81 MG TAB PO SCH (09:03)
[2018-02-08] MEDS: APIXABAN 5 MG TAB PO SCH (09:03)
[2018-02-08] MEDS: ACETAMINOPHEN 325 MG TAB PO PRN (09:17)
--- NOTE | 2018-02-08 11:05 | PDDCSUM ---
Discharge Summary Discharge Summary: DATE OF ADMISSION: 02/03/18 DATE OF DISCHARGE: 02/08/18 DISPOSITION: Home, self-care PRINCIPAL ADMISSION DIAGNOSIS: Unstable angina PRINCIPAL DISCHARGE DIAGNOSES: 1. Progressive coronary artery disease 2. Status post coronary artery bypass grafting x 4 with 2 arterial grafts 3. Status post prophylactic AtriClip ligation of the left atrial appendage 4. Acute expected blood loss anemia 5. Postoperative paroxysmal atrial fibrillation 6. Postoperative ST segment elevations without evidence of ischemia HISTORY OF PRESENT ILLNESS: 62 yo male with multivessel CAD, a stented RCA, and increasing exertional chest pains admitted for elective cardiac catheterization. Found to have patent stents with a new high grade PDA lesion, a subtotal left main stenosis, an LVEDP of 10, an LVEF of 60-65% and no significant valvular dysfunction. Surgical revascularization recommended and taken emergently to the OR for threatening anatomy. PERTINENT PAST MEDICAL HISTORY: CAD with CHARLIE prox/mid RCA 2007; 40-50% left main stenosis, 50% prox LCX stenosis and 70% LAD stenosis treated medically; dyslipidemia; HTN MEDICATIONS ON ADMISSION: ASA 81 mg daily, Metoprolol tartrate 25 mg BID, Vasotec 2.5 mg daily, Simvastatin 20 mg daily, Niacin ER 500 mg daily ALLERGIES/SENSITIVITIES: NKDA CONSULTANTS: CV surgery (Shabana), Interventional cardiology (Paula) PROCEDURES/IMAGIN/17 (Canelo/Pablo): Left heart catheterization with selective coronary angiogram. 02/03 (Canelo): Transthoracic echocardiogram 02/03 (Shabana): Emergent coronary artery bypass grafting x 4 (WILFREDO-LAD, HOWARD-RI, SV-OM1, SV-PDA). Takedown bilateral internal mammary arteries. Endoscopic vein harvest left thigh. Prophylactic AtriClip ligation of the left atrial appendage. 02/05 (Paula): Left heart catheterization with coronary and graft angiography. 02/05 (Canelo): Limited transthoracic echocardiogram ABBREVIATED HOSPITAL COURSE BY ACTIVE PROBLEM LIST: 1. Sx CAD with preserved LV systolic fx - s/p CABG with bilateral mammaries. No apparent complications. Extubated in the OR. Hemodynamically stable early postop course. Adequate auto-diuresis of modest volume overload. Secondary prevention with baby ASA, BB and statin. 2. Postop anterolateral ST elevations - Without hemodynamic instability. Limited echo neg for RWMA or LVSD. All grafts patent by angiography. Slow flow in the PDA graft attributed to competitive flow. Intermediate grade anastomotic stenosis (kink) of the DANNIELLE-RI not felt to warrant intervention. BB uptitrated as tolerated. EKG changes normalized within 24hrs. 3. Postop paroxysmal atrial fibrillation - Intermittent on amio and escalating BB. Sinus rhythm held as of POD#4. Antithrombotic prophylaxis with Eliquis for [id number] score of 2. 4. Acute expected blood loss anemia - Stable. No transfusions required. 5. HTN - Controlled on combination therapy. ACEI resumed prior to discharge for uptrending SBPs. DISCHARGE CLINICAL INFORMATION: Sternum grossly stable. Sternotomy and LLE venotomy CDI, sutured, +Dermabond. HR 60s-70s. SBP 120s-140s. SpO2 85% RA, correcting to 91% on 2 Lpm O2. Wt 1 kg below admission at 95.4 kilos. Hgb 12.7, HCT 36.5, Plt 130, Na 137, K 4.2, Cr 0.8 DISCHARGE MEDICATIONS: As on admission with the following adjustment: 1. Increase metoprolol tartrate to 50 mg BID. NEW prescriptions: 1. Amiodarone 200 mg BID thru 02/19, then 200 mg daily thru 03/05 or as directed. 2. Eliquis 5 mg BID until off amiodarone. 3. [place] 5/325 one to two tabs q 4-6 hrs prn incisional pain. 4. Oxygen @ 1 Lpm rest and 2 Lpm activity or as directed by SpO2. FOLLOW UP APPOINTMENTS: 1. CV surgery: with Dr Donald at [facility] on 02/17 at 9:30 am. 2. Cardiology: with Dr Lemos at [facility] within 4-6 weeks. Appointment to be established during surgical visit. FOLLOW UP TESTING: CXR prior to surgical appointment.
--- NOTE | 2018-02-08 11:06 | PDHOMEO2F ---
Home Oxygen Face to Face Home Orders: I certify that a physician or a nurse practitioner or physician's assistant professor of chemistry has had a [id number] encounter with this patient on the date of this order due to the diagnosis listed, which relates to the primary reason the patient requires home oxygen. Alternative treatments have been tried, or considered, and deemed ineffective. It is anticipated that supplemental oxygen will result in improvement with treatment. Home oxygen qualifying diagnosis: CAD SpO2 on room air (%): 85 Frequency of home oxygen needed: continuous Home oxygen liters per minute: 1 Home oxygen delivery device: nasal cannula Concentrator: Yes E-tanks for mobility and back up: Yes If ordering portable O2, is the patient mobile in the home?: Yes I certify that, based on these findings, the home oxygen is medically necessary for this patient for the following length of time. Length of time home oxygen needed: 1 month
--- NOTE | 2018-02-08 11:40 | ASMTLACE ---
LACE Length of stay for Answers: 4-6 days current admission Acuity / Level of Answers: Yes Care: Did the patient have an inpatient admission? Comorbidities - select Answers: Coronary Artery Disease all that apply Other Notes: Heart cath procedure # of Emergency department Answers: 0 visits in the last 6 months Score: 10 Date Signed: 02/08/2018 11:39 AM Electronically Signed By:Stacey Thapa RN
--- NOTE | 2018-02-08 11:45 | ASMTCMCOM ---
CM Note CM Note Notes: Chart reviewed. Medically cleared for discharge to home with outpatient cardiac rehab. No other needs identified at this time. CM available if needs arise. Plan: Home independently Date Signed: 02/08/2018 11:45 AM Electronically Signed By:Stacey Thapa RN
[2018-02-08] MEDS ORDERED: PNEUMOCOCCAL 0.5ML VACCINE VIAL IM ONE (14:26)
[2018-02-08 14:30] VITALS: BP 130/80
== END 2018-02-08 15:14 | disposition home or self-care (01) | DRG 234 ==
LOC: FCATH 07:42 → F2N 12:31 → F2W 02-04 16:00
PROVIDERS: ADMIT Internal Medicine; ATTEND Thoracic Surgery (Cardiothoracic Vascular Surgery)
PROC: 4A023N6 Measurement of Cardiac Sampling and Pressure, Right Heart, Percutaneous Approach (ICD-10-PCS; 2018-02-03)
PROC: B2111ZZ Fluoroscopy of Multiple Coronary Arteries using Low Osmolar Contrast (ICD-10-PCS; 2018-02-03)
PROC: 06BQ4ZZ Excision of Left Saphenous Vein, Percutaneous Endoscopic Approach (ICD-10-PCS; principal; 2018-02-03 10:15)
PROC: 02100Z9 Bypass Coronary Artery, One Artery from Left Internal Mammary, Open Approach (ICD-10-PCS; principal; 2018-02-03 10:15)
PROC: 02100Z8 Bypass Coronary Artery, One Artery from Right Internal Mammary, Open Approach (ICD-10-PCS; principal; 2018-02-03 10:15)
PROC: 02L70CK Occlusion of Left Atrial Appendage with Extraluminal Device, Open Approach (ICD-10-PCS; principal; 2018-02-03 10:15)
PROC: 5A1221Z Performance of Cardiac Output, Continuous (ICD-10-PCS; principal; 2018-02-03 10:15)
PROC: 021109W Bypass Coronary Artery, Two Arteries from Aorta with Autologous Venous Tissue, Open Approach (ICD-10-PCS; principal; 2018-02-03 10:15)
PROC: B2111ZZ Fluoroscopy of Multiple Coronary Arteries using Low Osmolar Contrast (ICD-10-PCS; 2018-02-05)
PROC: B2131ZZ Fluoroscopy of Multiple Coronary Artery Bypass Grafts using Low Osmolar Contrast (ICD-10-PCS; 2018-02-05)
PROC: B2151ZZ Fluoroscopy of Left Heart using Low Osmolar Contrast (ICD-10-PCS; 2018-02-05)
DX: I25.110 Atherosclerotic heart disease of native coronary artery with unstable angina pectoris (principal); D62 Acute posthemorrhagic anemia; I48.0 Paroxysmal atrial fibrillation; I10 Essential (primary) hypertension; E78.5 Hyperlipidemia, unspecified; Z23 Encounter for immunization
CPT/HCPCS: 82947-QW; 97110-GP; 97116-GP; 97161-GP; 97166-GO; 97530-GO; 97530-GP; 97535-GO; C1760; C1769; G0009; J0153; J0171; J0282; J0330; J0461; J0583; J0690; J1265; J1644; J1815; J1940; J2001; J2150; J2250; J2260; J2270; J2370; J2405; J2440; J2704; J2720; J2930; J3010; J3475; J7060; P9041; Q9967

== ENCOUNTER → 2018-02-17 | Outpatient (CLI) | payer BC | LOC: FIMAGING 08:47 | PROVIDERS: ATTEND Thoracic Surgery (Cardiothoracic Vascular Surgery) | DX: J90 Pleural effusion, not elsewhere classified (principal) ==